=== PATIENT | female | born 1960 | race Caucasian/White ===

== ENCOUNTER 2019-08-20 22:47 | Emergency (ER) | payer OTHER ==
[~2019-08-20] VITALS: Ht 154.9 cm; Wt 54.4 kg
[2019-08-20 22:47] VITALS: BP 135/63
--- NOTE | 2019-08-20 22:47 | NUR ---
PT TREVA CERDAS. TAKEN TO BED 4
--- NOTE | 2019-08-20 23:08 | NUR ---
59 Y/O FEMALE BIB AMBULANCE FROM HOME. PRESENTS TO ED, C/O BILAT KNEE PAIN. PT STATES HAVING INTERMITTENT KNEE PAIN X1 WEEK, WORSENED TODAY. C/O OF BILAT LEG EDEMA X1 WEEK. 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 PT UNABLE TO AMBULATE DUE TO SEVERE PAIN, 07/11. PT VSS. ERMD AWARE. WILL CONTINUE TO MONITOR.
--- NOTE | 2019-08-20 23:19 | NUR ---
Dr. Hansen examining patient.
[2019-08-20] MEDS ORDERED: fentaNYL 0.05 MG/ML VIAL IM ONE (23:25)
[2019-08-20] MEDS ORDERED: FUROSEMIDE 40 MG TAB PO ONE (23:25)
--- NOTE | 2019-08-20 23:40 | NUR ---
EKG PERFORMED AT BEDSIDE
[2019-08-20 23:47] LABS: BASOPHILS % (AUTO) 0.7 % (0.0-2.0); EOSINOPHILS # (AUTO) 0.2 K/uL (0-0.4); EOSINOPHILS % (AUTO) 3.6 % (0.0-4.0); HEMATOCRIT 30.3 % (36-48); HEMOGLOBIN 9.9 g/dL (12.0-16.0); LYMPHOCYTES % (AUTO) 33.9 % (20.5-51.1); MEAN CORPUSCULAR HEMOGLOBIN 27 pg (27-31); MEAN CORPUSCULAR HGB CONC 33 g/dL (33-37); MEAN CORPUSCULAR VOLUME 84.3 fL (80-94); MONOCYTES # (AUTO) 0.3 K/uL (0.8-1.0); MONOCYTES % (AUTO) 5.8 % (1.7-9.3); NEUTROPHILS # (AUTO) 3.3 K/uL (1.8-7.7); PLATELET COUNT (AUTO) 395 K/uL (140-450); RED BLOOD CELL COUNT(AUTO) 3.59 MIL/uL (4.20-5.40); RED CELL DISTRIBUTION WIDTH 16.1 % (11.6-13.7)
[2019-08-20 23:59] LABS: ANION GAP 11.9 (8-16); CARBON DIOXIDE 26.4 mmol/L (21-32); CREATININE 0.6 mg/dL (0.6-1.3); POTASSIUM 3.3 mmol/L (3.5-5.1)
[2019-08-21 00:05] LABS: ALBUMIN 2.9 g/dL (3.4-5.0); TOTAL BILIRUBIN 0.2 mg/dL (0.0-1.0)
[2019-08-21 00:42] LABS: APPEARANCE,URINE CLEAR (CLEAR); BILIRUBIN,URINE NEGATIVE (NEGATIVE); BLOOD, URINE NEGATIVE (NEGATIVE); COLOR,URINE YELLOW (YELLOW); LEUKOCYTE ESTERASE ,URINE NEGATIVE (NEGATIVE); NITRITE, URINE NEGATIVE (NEGATIVE); PH,URINE 5.5 (5.0-9.0); UGLUCOSE NEGATIVE (NEGATIVE)
--- NOTE | 2019-08-21 01:14 | NUR ---
PT TAKEN TO XRAY
[2019-08-21 02:10] VITALS: BP 128/62
--- NOTE | 2019-08-21 02:19 | NUR ---
Patient discharged with v/s stable. Written and verbal after care instructions given and explained. Patient verbalized understanding. Ambulatory with steady gait ccompanied by family member. All questions addressed prior to discharge. Advised to follow up with PMD.
== END 2019-08-21 02:19 | disposition home or self-care (01) ==
LOC: MED 22:47
DX: M06.061 Rheumatoid arthritis without rheumatoid factor, right knee (principal); M06.062 Rheumatoid arthritis without rheumatoid factor, left knee; I89.0 Lymphedema, not elsewhere classified
CPT/HCPCS: 36415; 71045; 73562; 80053; 81003; 83880; 85025; 93005; 96372; 99284; J3010